=== PATIENT | female | born 1985 | race Caucasian/White ===

== ENCOUNTER 2018-01-24 22:03 | Emergency (ER) | payer BC ==
[2018-01-24 23:35] LABS: HEMATOCRIT 37.2 % (36.0-48.0); HEMOGLOBIN 12.2 g/dL (12-16); LYMPHOCYTES 28.6 % (15-50); MCHC 32.8 g/dL (31.0-37.0); MCV 85.5 fL (80.0-100.0); MEAN PLATELET VOLUME 8.4 fL (7.4-10.4); NEUTROPHILS 67.3 % (40-80); PLATELET COUNT 306 10x3/uL (130-400); RBC 4.35 10x6/uL (4.00-5.40); RDW 13.2 % (11.5-14.5); WBC 14.3 10x3/uL (4.8-10.8)
[2018-01-24 23:44] LABS: ALBUMIN 3.3 g/dL (3.4-5.0); ANION GAP 10.9 mmol/L (8-16); BILIRUBIN - TOTAL 0.2 mg/dL (0.2-1.3); CALCIUM 8.8 mg/dL (8.5-10.1); POTASSIUM - SERUM 3.9 mmol/L (3.5-5.1); PROTEIN - SERUM 7.5 g/dL (6.4-8.2)
[2018-01-24 23:54] LABS: C-REACTIVE PROTEIN 2.4 mg/dL (0.0-0.9); THYROID STIMULATING HORMONE 8.37 uIU/mL (0.36-3.74)
== END 2018-01-25 01:30 | disposition home or self-care (01) ==
LOC: D.ER 22:03
PROVIDERS: Family Medicine
DX: R51 Headache (principal); Z86.59 Personal history of other mental and behavioral disorders; E28.2 Polycystic ovarian syndrome